=== PATIENT | male | born 1950 | race Caucasian/White ===

== ENCOUNTER 2017-09-28 12:34 | Inpatient (IN) | payer MEDICARE, OTHER ==
[~2017-09-28] VITALS: Ht 172.7 cm; Wt 106.2 kg
[~2017-09-28 12:34] MED LIST: LIDOcaine 2% (20 mg/ml) 5ml cardiac syringe ONE; albumin (human) 25% 100 ML IV solution IV ONE; aminocaproic acid 250 MG/1 ML inj. ONE; calcium chloride 100 MG/1 ML inj IV ONE; heparin 1,000 units/ml 10ml inj ONE; heparin 10,000 units/1 ML INJ ONE; magnesium sulf 1 GM/2 ML ONE; phenylephrine 10mg/ml inj. ONE; potassium Cl 2 mEq/ml inj IV ONE; sodium bicarbonate (8.4%) 1 mEq/ml syringe ONE
[2017-09-28 13:12] LABS: BASOPHILS % (AUTO) 0.4 % (0-1); EOSINOPHILS # (AUTO) 0.2 X10'3 (0-0.9); EOSINOPHILS % (AUTO) 2.1 % (0-6); HEMATOCRIT 45.3 % (42.0-52.0); HEMOGLOBIN 15.2 g/dl (14.0-17.9); LYMPHOCYTES # (AUTO) 2.2 X10'3 (1.1-4.8); LYMPHOCYTES % (AUTO) 24.3 % (21-51); MEAN CORPUSCULAR HEMOGLOBIN 29.3 PG (27.0-31.0); MEAN CORPUSCULAR HGB CONC 33.6 % (33.0-36.5); MEAN CORPUSCULAR VOLUME 87.2 FL (78-98); MEAN PLATELET VOLUME 7.6 FL (7.4-10.4); MONOCYTES # (AUTO) 0.6 X10'3 (0-0.9); MONOCYTES % (AUTO) 6.5 % (2-12); NEUTROPHILS % (AUTO) 66.7 % (42-75); PLATELET COUNT 251 X10'3 (140-440); RED CELL DISTRIBUTION WIDTH 14.6 % (11.5-14.5)
[2017-09-28 13:21] LABS: PARTIAL THROMBOPLASTIN TIME 28 SECONDS (22-32); PROTHROMBIN TIME 10.3 SECONDS (9.0-12.0)
[2017-09-28 13:27] LABS: ALANINE AMINOTRANSFERASE 46 U/L (12-78); ALBUMIN 3.7 G/DL (3.4-5.0); ALBUMIN/GLOBULIN RATIO 1.1 (1.1-1.5); ALKALINE PHOSPHATASE 93 IU/L (46-116); ANION GAP 8 (8-16); ASPARTATE AMINO TRANSFERASE 27 U/L (10-37); BILIRUBIN,TOTAL 0.5 MG/DL (0.1-1.0); BLOOD UREA NITROGEN 14 MG/DL (7-18); BUN/CREATININE RATIO 15.7 (5.4-32.0); CALCIUM 8.3 MG/DL (8.5-10.1); CHLORIDE 105 MMOL/L (99-107); CREATININE 0.89 MG/DL (0.60-1.10); GLUCOSE 91 MG/DL (70-104); POTASSIUM 3.8 MMOL/L (3.5-5.1); SODIUM 140 MMOL/L (135-145); TOTAL CARBON DIOXIDE 26.8 MMOL/L (24-32); TOTAL PROTEIN 7.2 G/DL (6.4-8.2); eGFR 85 ML/MIN
[2017-09-28] MEDS ORDERED: normal saline 1000ML IV soln IVB ONE (13:50)
[2017-09-28] MEDS ORDERED: etomidate 2mg/ml inj. ONE (14:00)
[2017-09-28] MEDS ORDERED: rocuronium 10mg/ml inj IV ONE (14:00)
[2017-09-28] MEDS ORDERED: sodium bicarbonate (8.4%) 1 mEq/ml syringe ONE (14:00)
[2017-09-28] MEDS ORDERED: epiNEPHrine 1 mg/ml 30ml MDV ONE (14:00)
[2017-09-28] MEDS ORDERED: atropine 0.1mg/ml 10ml syringe ONE (14:00)
[2017-09-28] MEDS ORDERED: sod chloride 0.9% 10ml flush syringe IV ONE ×3 (14:00)
[2017-09-28] MEDS ORDERED: epiNEPHrine 0.1mg/ml 10ml syringe ONE ×2 (14:00)
[2017-09-28] MEDS ORDERED: NORepinephrine bitartrate 8 MG in NS 250 ML BAG (32 mcg/ml) IV ONE (14:00)
[2017-09-28] MEDS ORDERED: LIDOcaine 2% (20 mg/ml) 5ml cardiac syringe ONE (14:00)
[2017-09-28] MEDS ORDERED: calcium chloride 100 MG/1 ML inj IV ONE (14:00)
[2017-09-28] MEDS ORDERED: heparin 10,000 units/1 ML INJ IV PRN (14:30)
[2017-09-28] MEDS ORDERED: heparin 10,000 units/1 ML INJ IV ONE ×2 (14:30→14:55)
[2017-09-28] MEDS ORDERED: potassium Cl 40MEQ/NS 500ml 500 ML IV PRN ×2 (14:45)
[2017-09-28] MEDS ORDERED: magnesium hydroxide 30ml (MOM) UD suspension PO PRN (14:45)
[2017-09-28] MEDS ORDERED: potassium Cl 20 mEq SR tablet PO PRN (14:45)
[2017-09-28] MEDS ORDERED: acetaminophen 325mg tablet PO PRN (14:45)
[2017-09-28] MEDS ORDERED: magnesium 1gm/100ml D5W IVPB 100 ML IV PRN (14:45)
[2017-09-28] MEDS ORDERED: magnesium 4gm in 100ml NS 100 ML IV PRN (14:45)
[2017-09-28] MEDS ORDERED: mag hydrox/Alum hydrox/simeth 30ml oral suspension PO PRN (14:45)
[2017-09-28] MEDS ORDERED: ondansetron/PF 4mg/2ml inj IV PRN (14:45)
[2017-09-28 15:44] VITALS: BP 138/71
[2017-09-28] MEDS: nitroGLYCERIN 0.4mg/hour patch TD SCH (16:18)
[2017-09-28 19:00] VITALS: BP 126/48
[2017-09-28 23:00] VITALS: BP 123/68
[2017-09-29] VITALS (24 sets, daily range): BP systolic 77–156; BP diastolic 46–92
[2017-09-29 01:05] LABS: ALANINE AMINOTRANSFERASE 40 U/L (12-78); ALKALINE PHOSPHATASE 92 IU/L (46-116); ANION GAP 7 (8-16); ASPARTATE AMINO TRANSFERASE 23 U/L (10-37); BILIRUBIN,TOTAL 0.3 MG/DL (0.1-1.0); BLOOD UREA NITROGEN 14 MG/DL (7-18); BUN/CREATININE RATIO 16.7 (5.4-32.0); CALCIUM 8.2 MG/DL (8.5-10.1); CHLORIDE 106 MMOL/L (99-107); CREATININE 0.84 MG/DL (0.60-1.10); GLUCOSE 126 MG/DL (70-104); POTASSIUM 3.4 MMOL/L (3.5-5.1); SODIUM 141 MMOL/L (135-145); TOTAL CARBON DIOXIDE 27.7 MMOL/L (24-32); TOTAL PROTEIN 6.1 G/DL (6.4-8.2); eGFR > 90 ML/MIN
[2017-09-29 01:09] LABS: CHOL/HDL RATIO 3.7 (0.00-4.99); CHOLESTEROL 139 MG/DL (0-200); HDL CHOLESTEROL 38 MG/DL (35-60); LDL CHOLESTEROL 83 MG/DL (50-100); MAGNESIUM 2.2 MG/DL (1.5-2.4); TRIGLYCERIDES 242 MG/DL (20-135)
[2017-09-29 02:26] LABS: BASOPHILS % (AUTO) 0.3 % (0-1); EOSINOPHILS # (AUTO) 0.3 X10'3 (0-0.9); EOSINOPHILS % (AUTO) 3.8 % (0-6); HEMOGLOBIN 13.9 g/dl (14.0-17.9); LYMPHOCYTES % (AUTO) 27.9 % (21-51); MEAN CORPUSCULAR HEMOGLOBIN 29.5 PG (27.0-31.0); MEAN CORPUSCULAR HGB CONC 33.9 % (33.0-36.5); MEAN CORPUSCULAR VOLUME 87.2 FL (78-98); MEAN PLATELET VOLUME 8.4 FL (7.4-10.4); MONOCYTES # (AUTO) 0.5 X10'3 (0-0.9); MONOCYTES % (AUTO) 7.3 % (2-12); NEUTROPHILS # (AUTO) 4.4 X10'3 (1.8-7.7); NEUTROPHILS % (AUTO) 60.7 % (42-75); PLATELET COUNT 233 X10'3 (140-440); RED CELL DISTRIBUTION WIDTH 14.4 % (11.5-14.5); WHITE BLOOD COUNT 7.3 X10'3 (4.5-11.0)
[2017-09-29] MEDS ORDERED: CAFFEINE CITRATE 60 MG/3 ML injection vial IV PRN (07:35)
[2017-09-29] MEDS ORDERED: regadenoson 0.4mg/5ml syringe IV ONE (07:35)
[2017-09-29] MEDS ORDERED: metoprolol tartrate 1mg/ml inj IV PRN (07:35)
[2017-09-29] MEDS ORDERED: nitroGLYCERIN 0.4mg SUBLingual tab SL PRN (07:35)
[2017-09-29] MEDS: nitroGLYCERIN 0.4mg/hour patch TD SCH ×3 (07:53→14:11)
[2017-09-29] MEDS: potassium Cl 20 mEq SR tablet PO PRN ×3 (07:54→20:23)
[2017-09-29] MEDS: K and/or MAG REPLACEMENT MC SCH (08:00)
[2017-09-29] MEDS: atorvastatin 20mg tablet PO SCH (10:05)
[2017-09-29] MEDS: metoprolol tartrate 25mg tablet PO SCH ×2 (10:05→20:22)
[2017-09-29] MEDS ORDERED: aspirin 325mg tablet PO SCH (10:05)
[2017-09-29] MEDS ORDERED: LIDOcaine 1% w/EPI 1:100,000 30ml vial (MDV) ONE (12:38)
[2017-09-29] MEDS ORDERED: fentaNYL/PF 50MCG/1 ML 2ML syringe ONE (12:38)
[2017-09-29] MEDS ORDERED: midazolam 2 mg/2 ml injection ONE (12:38)
[2017-09-29] MEDS ORDERED: iohexol 350MG/ML 100ml bottle IV ONE ×2 (12:38→16:59)
[2017-09-29] MEDS ORDERED: OXAZEpam 15mg capsule PO PRN (14:00)
[2017-09-29] MEDS ORDERED: morphine 2 MG/ML inj. syringe IV PRN (14:35)
[2017-09-29] MEDS: morphine 4 MG/ML inj SYRINge IV PRN (14:50)
[2017-09-29] MEDS ORDERED: heparin 10,000 units/1 ML INJ IV ONE (15:50)
[2017-09-29] MEDS ORDERED: morphine 10mg/0.5ml (conc. morphine) oral syringe PO PRN (15:55)
[2017-09-29] MEDS ORDERED: nitroGLYCERIN-Tridil 50MG/D5W 250 ML IV PRN (16:00)
[2017-09-29] MEDS ORDERED: dextrose 50%-water 50ml dispensing syringe IV PRN (16:25)
[2017-09-29] MEDS ORDERED: MESSAGE TO NURSING PO ONE ×4 (16:25)
[2017-09-29] MEDS: normal saline 1000ml 1,000 ML IV SCH (16:30)
[2017-09-29] MEDS ORDERED: ketorolac trometh. 30mg/ml inj. IV STA ×2 (16:30→16:35)
[2017-09-29] MEDS ORDERED: ketorolac tromethamine 15mg/ml inj. IV STA (16:33)
[2017-09-29 16:47] LABS: HEMATOCRIT 44.1 % (42.0-52.0); HEMOGLOBIN 14.9 g/dl (14.0-17.9); MEAN CORPUSCULAR HEMOGLOBIN 29.3 PG (27.0-31.0); MEAN CORPUSCULAR HGB CONC 33.9 % (33.0-36.5); MEAN CORPUSCULAR VOLUME 86.6 FL (78-98); MEAN PLATELET VOLUME 7.6 FL (7.4-10.4); PLATELET COUNT 260 X10'3 (140-440); RED BLOOD COUNT 5.09 X10'6 (4.70-6.10); RED CELL DISTRIBUTION WIDTH 14.5 % (11.5-14.5); WHITE BLOOD COUNT 8.9 X10'3 (4.5-11.0)
[2017-09-29] MEDS ORDERED: LORazepam 2 mg/ml vial IV ONE (16:55)
[2017-09-29 16:57] LABS: ALBUMIN 3.3 G/DL (3.4-5.0); ANION GAP 10 (8-16); BLOOD UREA NITROGEN 12 MG/DL (7-18); BUN/CREATININE RATIO 10.8 (5.4-32.0); CALCIUM 8.5 MG/DL (8.5-10.1); CHLORIDE 106 MMOL/L (99-107); CREATININE 1.11 MG/DL (0.60-1.10); GLUCOSE 119 MG/DL (70-104); HEMOGLOBIN A1C 5.9 % (4.5-6.2); POTASSIUM 3.8 MMOL/L (3.5-5.1); SODIUM 138 MMOL/L (135-145); eGFR 66 ML/MIN
[2017-09-29] MEDS: insulin Lispro (HumaLOG) vial - multi-dose SQ SCH (18:00)
[2017-09-30] VITALS (8 sets, daily range): BP systolic 127–163; BP diastolic 71–93
[2017-09-30 02:13] LABS: BASOPHILS % (AUTO) 0.3 % (0-1); EOSINOPHILS # (AUTO) 0.1 X10'3 (0-0.9); EOSINOPHILS % (AUTO) 1.1 % (0-6); HEMOGLOBIN 13.9 g/dl (14.0-17.9); LYMPHOCYTES # (AUTO) 1.8 X10'3 (1.1-4.8); LYMPHOCYTES % (AUTO) 18.2 % (21-51); MEAN CORPUSCULAR HEMOGLOBIN 29.7 PG (27.0-31.0); MEAN CORPUSCULAR VOLUME 87.3 FL (78-98); MEAN PLATELET VOLUME 7.8 FL (7.4-10.4); MONOCYTES # (AUTO) 0.6 X10'3 (0-0.9); MONOCYTES % (AUTO) 6.6 % (2-12); NEUTROPHILS # (AUTO) 7.1 X10'3 (1.8-7.7); NEUTROPHILS % (AUTO) 73.8 % (42-75); PLATELET COUNT 232 X10'3 (140-440); RED CELL DISTRIBUTION WIDTH 14.9 % (11.5-14.5); WHITE BLOOD COUNT 9.6 X10'3 (4.5-11.0)
[2017-09-30 02:27] LABS: ALANINE AMINOTRANSFERASE 45 U/L (12-78); ALBUMIN 3.1 G/DL (3.4-5.0); ALBUMIN/GLOBULIN RATIO 0.9 (1.1-1.5); ALKALINE PHOSPHATASE 91 IU/L (46-116); ANION GAP 6 (8-16); ASPARTATE AMINO TRANSFERASE 111 U/L (10-37); BILIRUBIN,TOTAL 0.5 MG/DL (0.1-1.0); BLOOD UREA NITROGEN 12 MG/DL (7-18); CALCIUM 7.9 MG/DL (8.5-10.1); CHLORIDE 105 MMOL/L (99-107); CREATININE 0.92 MG/DL (0.60-1.10); GLUCOSE 114 MG/DL (70-104); POTASSIUM 4.5 MMOL/L (3.5-5.1); SODIUM 138 MMOL/L (135-145); TOTAL CARBON DIOXIDE 26.9 MMOL/L (24-32); TOTAL PROTEIN 6.4 G/DL (6.4-8.2); eGFR 82 ML/MIN
[2017-09-30] MEDS: normal saline 1000ml 1,000 ML IV SCH ×3 (02:30→23:03)
[2017-09-30] MEDS: morphine 4 MG/ML inj SYRINge IV PRN ×3 (05:43→19:17)
[2017-09-30] MEDS: metoprolol tartrate 25mg tablet PO SCH ×2 (07:56→21:11)
[2017-09-30] MEDS: atorvastatin 20mg tablet PO SCH (07:56)
[2017-09-30] MEDS: nitroGLYCERIN 0.4mg/hour patch TD SCH (08:00)
[2017-09-30] MEDS: K and/or MAG REPLACEMENT MC SCH (08:00)
[2017-09-30] MEDS ORDERED: MESSAGE TO NURSING PO ONE (10:00)
[2017-09-30 12:41] LABS: ABG BASE EXCESS -1.2 mmol/L (-2.0-3.0); ABG HCO3 22.8 mmol/L (22.0-26.0); ABG OXYGEN SATURATION 95.9 % (95-98); ABG PCO2 (T) 35.4 mmHg (35.0-48.0); ABG PH (T) 7.425 (7.350-7.450); ABG PO2 (T) 75.1 mmHg (83-108); ALLEN'S TEST Positive; FCOHb 0.8 % (0.5-1.5); FO2Hb 95.1 % (94-100); PATIENT TEMPERATURE 36.6; TOTAL HEMOGLOBIN 15.1 G/dl (14.0-18.0)
[2017-09-30] MEDS ORDERED: ringers solution, lacted 1,000 ML IV ONE (14:52)
[2017-09-30] MEDS: heparin 10,000 units/1 ML INJ IV PRN ×2 (15:06→21:55)
[2017-09-30] MEDS ORDERED: nitroGLYCERIN-Tridil 50MG/D5W 250 ML IV PRN (16:00)
[2017-09-30] MEDS: insulin Lispro (HumaLOG) vial - multi-dose SQ SCH (18:00)
[2017-09-30] MEDS: aspirin 81mg tab.chew PO SCH (22:40)
[2017-10-01] VITALS (17 sets, daily range): BP systolic 98–166; BP diastolic 48–83
[2017-10-01] MEDS: insulin Lispro (HumaLOG) vial - multi-dose SQ SCH ×3 (01:47→18:00)
[2017-10-01 04:25] LABS: BASOPHILS # (AUTO) 0.1 X10'3 (0-0.2); BASOPHILS % (AUTO) 0.3 % (0-1); EOSINOPHILS % (AUTO) 0 % (0-6); HEMOGLOBIN 14.6 g/dl (14.0-17.9); LYMPHOCYTES # (AUTO) 1.5 X10'3 (1.1-4.8); LYMPHOCYTES % (AUTO) 9.8 % (21-51); MEAN CORPUSCULAR HEMOGLOBIN 29.6 PG (27.0-31.0); MEAN CORPUSCULAR HGB CONC 34.8 % (33.0-36.5); MEAN PLATELET VOLUME 7.6 FL (7.4-10.4); MONOCYTES # (AUTO) 1.1 X10'3 (0-0.9); MONOCYTES % (AUTO) 7.1 % (2-12); NEUTROPHILS # (AUTO) 12.8 X10'3 (1.8-7.7); NEUTROPHILS % (AUTO) 82.8 % (42-75); PLATELET COUNT 235 X10'3 (140-440); RED BLOOD COUNT 4.94 X10'6 (4.70-6.10); WHITE BLOOD COUNT 15.4 X10'3 (4.5-11.0)
[2017-10-01 04:37] LABS: PROTHROMBIN TIME 10.7 SECONDS (9.0-12.0)
[2017-10-01 04:39] LABS: ALANINE AMINOTRANSFERASE 81 U/L (12-78); ALBUMIN 3.2 G/DL (3.4-5.0); ALBUMIN/GLOBULIN RATIO 0.9 (1.1-1.5); ALKALINE PHOSPHATASE 88 IU/L (46-116); ANION GAP 8 (8-16); ASPARTATE AMINO TRANSFERASE 334 U/L (10-37); BILIRUBIN,TOTAL 0.8 MG/DL (0.1-1.0); BLOOD UREA NITROGEN 9 MG/DL (7-18); BUN/CREATININE RATIO 9.4 (5.4-32.0); CALCIUM 8.2 MG/DL (8.5-10.1); CHLORIDE 102 MMOL/L (99-107); CREATININE 0.96 MG/DL (0.60-1.10); GLUCOSE 142 MG/DL (70-104); MAGNESIUM 1.7 MG/DL (1.5-2.4); POTASSIUM 3.7 MMOL/L (3.5-5.1); SODIUM 134 MMOL/L (135-145); TOTAL PROTEIN 6.8 G/DL (6.4-8.2); eGFR 78 ML/MIN
[2017-10-01] MEDS ORDERED: cefazolin/dext.iso 2gm/50ml 50 ML IV ONE (05:00)
[2017-10-01] MEDS ORDERED: vancomycin/NS 1 GM ADD-VANTAGE 250 ML IV ONE (05:00)
[2017-10-01] MEDS: heparin 10,000 units/1 ML INJ IV PRN (05:50)
[2017-10-01] MEDS ORDERED: ringers solution, lacted 1,000 ML IV ONE (06:00)
[2017-10-01] MEDS ORDERED: LORazepam 2 mg/ml vial IV ONE (06:00)
[2017-10-01] MEDS ORDERED: famotidine 20mg tablet PO ONE (06:00)
[2017-10-01] MEDS: nitroGLYCERIN 0.4mg/hour patch TD SCH (06:47)
[2017-10-01] MEDS ORDERED: LORazepam 2 mg/ml vial ONE (07:10)
[2017-10-01] MEDS: metoprolol tartrate 25mg tablet PO SCH (08:00)
[2017-10-01] MEDS: K and/or MAG REPLACEMENT MC SCH (08:00)
[2017-10-01] MEDS: atorvastatin 20mg tablet PO SCH (08:00)
[2017-10-01] MEDS: aspirin 81mg tab.chew PO SCH (08:30)
[2017-10-01] MEDS ORDERED: heparin 1,000 units/ml 10ml inj ONE (09:00)
[2017-10-01] MEDS ORDERED: papaverine 30 mg/ml 2ml inj. ONE (09:00)
[2017-10-01] MEDS ORDERED: mupirocin 2% nasal ointment 1gm UD NS SCH (10:00)
[2017-10-01] MEDS: morphine 4 MG/ML inj SYRINge IV PRN ×3 (10:59→21:51)
[2017-10-01] MEDS: albuterol 2.5 MG/3 ML nebule NEB SCH ×2 (11:00→15:00)
[2017-10-01] MEDS ORDERED: NO HOME MEDS (11:16)
[2017-10-01] MEDS ORDERED: albumin (Human) 5% 250ml 250 ML IV ONE (11:20)
[2017-10-01] MEDS ORDERED: SUFENTANIL CITRATE 50 MCG/ML 2ml ampule IV ONE (11:39)
[2017-10-01] MEDS ORDERED: albumin (human) 25% 100 ML IV solution IV ONE (11:40)
[2017-10-01] MEDS ORDERED: nitroGLYCERIN in D5W 50mg/250ml (Tridil) infusion IV ONE (11:40)
[2017-10-01] MEDS ORDERED: aminocaproic acid 250 MG/1 ML inj. ONE (11:40)
[2017-10-01] MEDS ORDERED: isoflurane 100ml inhalation liquid IH ONE (11:40)
[2017-10-01] MEDS ORDERED: NORepinephrine bitartrate 8 MG in NS 250 ML BAG (32 mcg/ml) IV ONE (11:40)
[2017-10-01] MEDS ORDERED: protamine sulf. 10mg/ml inj. IV ONE (11:40)
[2017-10-01] MEDS ORDERED: INSULIN R 100 UNIT in NS 100ML (1 UNIT/1 ML) BAG IV ONE (11:40)
[2017-10-01] MEDS ORDERED: rocuronium 10mg/ml inj IV ONE (11:41)
[2017-10-01 12:46] LABS: ABG BASE EXCESS -2.9 mmol/L (-2.0-3.0); ABG HCO3 19.5 mmol/L (22.0-26.0); ABG OXYGEN SATURATION 99.3 % (95-98); ABG PCO2 27.8 mmHg (35.0-45.0); ABG PH 7.464 (7.350-7.450); ABG PO2 305.5 mmHg (60.0-100.0); CL (ABG) 104 mmol/L (99-107); FCOHb 0.8 % (0.5-1.5); FMetHb 0.4 % (0.3-1.12); FO2Hb 98.1 % (94-100); GLUCOSE (ABG) 110 mg/dl (70-105); IONIZED CA (ABG) 1.11 mmol/L (1.03-1.32); K (ABG) 3.7 mmol/L (3.3-5.1); NA (ABG) 134 mmol/L (135-145); TOTAL HEMOGLOBIN 13.5 G/dl (14.0-18.0)
[2017-10-01] MEDS ORDERED: papaverine 30 mg/ml 2ml inj. IA ONE (12:57)
[2017-10-01] MEDS ORDERED: heparin 10,000 units/1 ML INJ IJ ONE (12:58)
[2017-10-01] MEDS ORDERED: pancuronium br 1mg/ml inj IV ONE (13:20)
[2017-10-01 13:41] LABS: ACT @ 1.70 U 257 SEC (193-297); ACT @ 2.84 U 336 SEC (260-420); BASELINE ACT 163 SEC (101-148)
[2017-10-01 13:41] LABS: ABG BASE EXCESS -4.7 mmol/L (-2.0-3.0); ABG HCO3 19.1 mmol/L (22.0-26.0); ABG OXYGEN SATURATION 99.1 % (95-98); ABG PCO2 31.4 mmHg (35.0-45.0); ABG PH 7.401 (7.350-7.450); ABG PO2 277.2 mmHg (60.0-100.0); CL (ABG) 103 mmol/L (99-107); FCOHb 0.7 % (0.5-1.5); FMetHb 0.1 % (0.3-1.12); FO2Hb 98.3 % (94-100); GLUCOSE (ABG) 124 mg/dl (70-105); IONIZED CA (ABG) 1.09 mmol/L (1.03-1.32); K (ABG) 3.8 mmol/L (3.3-5.1); NA (ABG) 132 mmol/L (135-145); TOTAL HEMOGLOBIN 12.7 G/dl (14.0-18.0)
[2017-10-01 14:11] LABS: ABG BASE EXCESS -1.8 mmol/L (-2.0-3.0); ABG HCO3 22.1 mmol/L (22.0-26.0); ABG PCO2 34.5 mmHg (35.0-45.0); ABG PH 7.425 (7.350-7.450); ABG PO2 288.4 mmHg (60.0-100.0); CL (ABG) 101 mmol/L (99-107); FCOHb 0.9 % (0.5-1.5); FMetHb 0.3 % (0.3-1.12); FO2Hb 97.8 % (94-100); GLUCOSE (ABG) 111 mg/dl (70-105); IONIZED CA (ABG) 0.97 mmol/L (1.03-1.32); K (ABG) 4.7 mmol/L (3.3-5.1); NA (ABG) 130 mmol/L (135-145)
[2017-10-01 14:26] LABS: ABG BASE EXCESS -0.3 mmol/L (-2.0-3.0); ABG HCO3 24.7 mmol/L (22.0-26.0); ABG OXYGEN SATURATION 99.1 % (95-98); ABG PCO2 42.3 mmHg (35.0-45.0); ABG PH 7.385 (7.350-7.450); CL (ABG) 102 mmol/L (99-107); FCOHb 0.7 % (0.5-1.5); FMetHb 0.3 % (0.3-1.12); FO2Hb 98.1 % (94-100); GLUCOSE (ABG) 118 mg/dl (70-105); K (ABG) 4.5 mmol/L (3.3-5.1); NA (ABG) 132 mmol/L (135-145); TOTAL HEMOGLOBIN 10.2 G/dl (14.0-18.0)
[2017-10-01 15:15] LABS: ABG BASE EXCESS -1.3 mmol/L (-2.0-3.0); ABG HCO3 23.1 mmol/L (22.0-26.0); ABG OXYGEN SATURATION 95.4 % (95-98); ABG PCO2 37.5 mmHg (35.0-45.0); ABG PH 7.407 (7.350-7.450); ABG PO2 77.9 mmHg (60.0-100.0); CL (ABG) 104 mmol/L (99-107); FCOHb 0.8 % (0.5-1.5); FMetHb 0.3 % (0.3-1.12); FO2Hb 94.4 % (94-100); GLUCOSE (ABG) 130 mg/dl (70-105); IONIZED CA (ABG) 1.15 mmol/L (1.03-1.32); K (ABG) 4.1 mmol/L (3.3-5.1); NA (ABG) 133 mmol/L (135-145); TOTAL HEMOGLOBIN 10.7 G/dl (14.0-18.0)
[2017-10-01] MEDS ORDERED: niCARDipine/sod cl 20mg/200ml 200 ML IV PRN (15:34)
[2017-10-01] MEDS ORDERED: sodium chloride 0.45% 1,000 ML IV SCH (15:34)
[2017-10-01] MEDS ORDERED: DOPamine 400mg/D5W 250ml 250 ML IV PRN (15:34)
[2017-10-01] MEDS ORDERED: nitroGLYCERIN-Tridil 50MG/D5W 250 ML IV PRN (15:34)
[2017-10-01] MEDS ORDERED: metoclopramide 5 mg/ml inj IV PRN (15:35)
[2017-10-01] MEDS ORDERED: ondansetron/PF 4mg/2ml inj IV PRN (15:35)
[2017-10-01] MEDS ORDERED: potassium Cl 20mEq/100mL bag 100 ML IV PRN ×2 (15:35)
[2017-10-01] MEDS ORDERED: sodium phosphate inj. 15 MMOL in dextrose 5%-water 150 ML IV PRN (15:35)
[2017-10-01] MEDS ORDERED: magnesium 4gm in 100ml NS 100 ML IV PRN (15:35)
[2017-10-01] MEDS ORDERED: Neutra Phos packet PO PRN (15:35)
[2017-10-01] MEDS ORDERED: HYDROcodone/acetaminophen 10/325mg tab PO PRN (15:35)
[2017-10-01] MEDS ORDERED: insulin regular, human inj. 100 UNITS in normal saline 100ml IV soln 100 ML IV SCH ×2 (15:35)
[2017-10-01] MEDS ORDERED: acetaminophen 325mg tablet PO PRN (15:35)
[2017-10-01] MEDS ORDERED: normal saline 250ml IV soln 250 ML IV PRN (15:35)
[2017-10-01] MEDS ORDERED: sodium phosphate inj. 30 MMOL in dextrose 5%-water 250 ML IV PRN (15:35)
[2017-10-01] MEDS ORDERED: dextrose 50%-water 50ml dispensing syringe IV PRN (15:35)
[2017-10-01] MEDS ORDERED: magnesium hydroxide 30ml (MOM) UD suspension PO PRN (15:35)
[2017-10-01] MEDS ORDERED: magnesium 1gm/100ml D5W IVPB 100 ML IV PRN (15:35)
[2017-10-01] MEDS ORDERED: albumin (Human) 5% 250ml 250 ML IV PRN (15:35)
[2017-10-01] MEDS ORDERED: morphine 4 MG/ML inj SYRINge ONE (16:09)
[2017-10-01] MEDS ORDERED: propofol 1000mg/100ml bottle 100 ML IV ONE (16:10)
[2017-10-01 16:11] LABS: ABG BASE EXCESS -2.8 mmol/L (-2.0-3.0); ABG HCO3 22.3 mmol/L (22.0-26.0); ABG OXYGEN SATURATION 96.3 % (95-98); ABG PCO2 (T) 39.9 mmHg (35.0-48.0); ABG PH (T) 7.365 (7.350-7.450); FCOHb 0.8 % (0.5-1.5); FO2Hb 95.5 % (94-100); MINUTE VOLUME 10 L/min; PEEP 5 cm H2O; RESPIRATORY RATE 14 b/min; RESPIRATORY RATE (OBSERVED) 14 b/min; TIDAL VOLUME 650 mL; TOTAL HEMOGLOBIN 13.8 G/dl (14.0-18.0)
[2017-10-01 16:11] LABS: BASOPHILS # (AUTO) 0.1 X10'3 (0-0.2); BASOPHILS % (AUTO) 0.3 % (0-1); EOSINOPHILS # (AUTO) 0.2 X10'3 (0-0.9); EOSINOPHILS % (AUTO) 0.9 % (0-6); HEMATOCRIT 38.5 % (42.0-52.0); HEMOGLOBIN 13.2 g/dl (14.0-17.9); LYMPHOCYTES # (AUTO) 2.4 X10'3 (1.1-4.8); LYMPHOCYTES % (AUTO) 9.4 % (21-51); MEAN CORPUSCULAR HEMOGLOBIN 29.6 PG (27.0-31.0); MEAN CORPUSCULAR HGB CONC 34.4 % (33.0-36.5); MEAN CORPUSCULAR VOLUME 85.9 FL (78-98); MEAN PLATELET VOLUME 7.6 FL (7.4-10.4); MONOCYTES # (AUTO) 1.7 X10'3 (0-0.9); MONOCYTES % (AUTO) 6.5 % (2-12); NEUTROPHILS # (AUTO) 20.9 X10'3 (1.8-7.7); NEUTROPHILS % (AUTO) 82.9 % (42-75); PLATELET COUNT 200 X10'3 (140-440); RED BLOOD COUNT 4.48 X10'6 (4.70-6.10); RED CELL DISTRIBUTION WIDTH 14.7 % (11.5-14.5)
[2017-10-01 16:13] LABS: WHITE BLOOD COUNT 25.3 X10'3 (4.5-11.0)
[2017-10-01] MEDS: insulin regular, human inj. 100 UNITS in normal saline 100ml IV soln 100 ML IV SCH ×8 (16:20→21:58)
[2017-10-01 16:26] LABS: ALANINE AMINOTRANSFERASE 59 U/L (12-78); ALBUMIN 2.8 G/DL (3.4-5.0); ALKALINE PHOSPHATASE 63 IU/L (46-116); ANION GAP 9 (8-16); ASPARTATE AMINO TRANSFERASE 280 U/L (10-37); BILIRUBIN,TOTAL 1.4 MG/DL (0.1-1.0); BLOOD UREA NITROGEN 10 MG/DL (7-18); BUN/CREATININE RATIO 8.9 (5.4-32.0); CALCIUM 7.8 MG/DL (8.5-10.1); CHLORIDE 104 MMOL/L (99-107); CREATININE 1.12 MG/DL (0.60-1.10); GLUCOSE 174 MG/DL (70-104); MAGNESIUM 2.8 MG/DL (1.5-2.4); PHOSPHORUS 2.4 MG/DL (2.3-4.5); POTASSIUM 3.6 MMOL/L (3.5-5.1); SODIUM 137 MMOL/L (135-145); TOTAL CARBON DIOXIDE 24.3 MMOL/L (24-32); TOTAL PROTEIN 5.6 G/DL (6.4-8.2); eGFR 65 ML/MIN
[2017-10-01 16:30] LABS: INR 1.2 INR; PARTIAL THROMBOPLASTIN TIME 32 SECONDS (22-32)
[2017-10-01 16:54] LABS: TOTAL CELLS COUNTED 100
[2017-10-01 16:55] LABS: PLATELET ESTIMATE NORMAL
[2017-10-01] MEDS: ceFAZolin 1GM/D5W- ADD-VANTAGE 50 ML IV SCH ×2 (18:00→23:43)
[2017-10-01] MEDS ORDERED: morphine 10mg/ml inj. IV ONE (19:30)
[2017-10-01] MEDS: docusate sod 100mg capsule PO SCH (19:55)
[2017-10-01] MEDS: vancomycin/NS 1 GM ADD-VANTAGE 250 ML IV SCH (20:11)
[2017-10-01] MEDS: mupirocin 2% nasal ointment 1gm UD NS SCH (20:13)
[2017-10-01 23:11] LABS: BASOPHILS % (AUTO) 0 % (0-1); EOSINOPHILS # (AUTO) 0.1 X10'3 (0-0.9); EOSINOPHILS % (AUTO) 0.8 % (0-6); HEMATOCRIT 35.2 % (42.0-52.0); LYMPHOCYTES # (AUTO) 0.4 X10'3 (1.1-4.8); LYMPHOCYTES % (AUTO) 3.1 % (21-51); MEAN CORPUSCULAR HEMOGLOBIN 29.5 PG (27.0-31.0); MEAN CORPUSCULAR HGB CONC 34.1 % (33.0-36.5); MEAN CORPUSCULAR VOLUME 86.3 FL (78-98); MEAN PLATELET VOLUME 7.8 FL (7.4-10.4); MONOCYTES # (AUTO) 0.3 X10'3 (0-0.9); MONOCYTES % (AUTO) 2.3 % (2-12); NEUTROPHILS # (AUTO) 12.5 X10'3 (1.8-7.7); NEUTROPHILS % (AUTO) 93.8 % (42-75); PLATELET COUNT 156 X10'3 (140-440); RED BLOOD COUNT 4.08 X10'6 (4.70-6.10); RED CELL DISTRIBUTION WIDTH 14.4 % (11.5-14.5); WHITE BLOOD COUNT 13.4 X10'3 (4.5-11.0)
[2017-10-01 23:26] LABS: ALANINE AMINOTRANSFERASE 53 U/L (12-78); ALBUMIN 1.8 G/DL (3.4-5.0); ALBUMIN/GLOBULIN RATIO 0.5 (1.1-1.5); ALKALINE PHOSPHATASE 57 IU/L (46-116); ANION GAP 7 (8-16); ASPARTATE AMINO TRANSFERASE 197 U/L (10-37); BILIRUBIN,TOTAL 1.1 MG/DL (0.1-1.0); BLOOD UREA NITROGEN 11 MG/DL (7-18); BUN/CREATININE RATIO 11.3 (5.4-32.0); CALCIUM 7.9 MG/DL (8.5-10.1); CHLORIDE 107 MMOL/L (99-107); CREATININE 0.97 MG/DL (0.60-1.10); GLUCOSE 165 MG/DL (70-104); SODIUM 140 MMOL/L (135-145); TOTAL CARBON DIOXIDE 26.1 MMOL/L (24-32); TOTAL PROTEIN 5.7 G/DL (6.4-8.2); eGFR 77 ML/MIN
[2017-10-01 23:32] LABS: MAGNESIUM 2.3 MG/DL (1.5-2.4)
[2017-10-01] MEDS: potassium Cl 20mEq/100mL bag 100 ML IV PRN (23:44)
[2017-10-01] MEDS ORDERED: SODIUM PHOSPHATE IN D5W 250 ML IV ONE (23:45)
[2017-10-02] VITALS (24 sets, daily range): BP systolic 92–131; BP diastolic 57–77
[2017-10-02] MEDS: potassium Cl 20mEq/100mL bag 100 ML IV PRN (01:29)
[2017-10-02] MEDS: propofol 1000mg/100ml bottle 100 ML IV PRN ×2 (01:30→02:44)
[2017-10-02 03:21] LABS: ABG HCO3 23.2 mmol/L (22.0-26.0); ABG OXYGEN SATURATION 96.4 % (95-98); ABG PCO2 (T) 34.2 mmHg (35.0-48.0); ABG PH (T) 7.451 (7.350-7.450); FCOHb 0.2 % (0.5-1.5); FMetHb 0.3 % (0.3-1.12); FO2Hb 95.9 % (94-100); MINUTE VOLUME 9 L/min; PATIENT TEMPERATURE 37.5; PEEP 5 cm H2O; RESPIRATORY RATE 12 b/min; RESPIRATORY RATE (OBSERVED) 12 b/min; TIDAL VOLUME 600 mL; TOTAL HEMOGLOBIN 12.9 G/dl (14.0-18.0)
[2017-10-02] MEDS: morphine 4 MG/ML inj SYRINge IV PRN ×3 (04:14→18:34)
[2017-10-02 05:11] LABS: ACTIVATED CLOTTING TIME 125 SEC (101-148)
[2017-10-02 05:26] LABS: BASOPHILS % (AUTO) 0 % (0-1); EOSINOPHILS # (AUTO) 0.1 X10'3 (0-0.9); EOSINOPHILS % (AUTO) 0.9 % (0-6); HEMATOCRIT 34.9 % (42.0-52.0); HEMOGLOBIN 12.1 g/dl (14.0-17.9); LYMPHOCYTES # (AUTO) 0.5 X10'3 (1.1-4.8); LYMPHOCYTES % (AUTO) 3.3 % (21-51); MEAN CORPUSCULAR HEMOGLOBIN 29.7 PG (27.0-31.0); MEAN CORPUSCULAR HGB CONC 34.6 % (33.0-36.5); MEAN CORPUSCULAR VOLUME 85.9 FL (78-98); MEAN PLATELET VOLUME 7.9 FL (7.4-10.4); MONOCYTES # (AUTO) 0.7 X10'3 (0-0.9); MONOCYTES % (AUTO) 4.5 % (2-12); NEUTROPHILS # (AUTO) 14.7 X10'3 (1.8-7.7); NEUTROPHILS % (AUTO) 91.3 % (42-75); PLATELET COUNT 154 X10'3 (140-440); RED BLOOD COUNT 4.06 X10'6 (4.70-6.10); RED CELL DISTRIBUTION WIDTH 14.3 % (11.5-14.5); WHITE BLOOD COUNT 16.1 X10'3 (4.5-11.0)
[2017-10-02 05:31] LABS: INR 1.1 INR; PARTIAL THROMBOPLASTIN TIME 30 SECONDS (22-32); PROTHROMBIN TIME 11.3 SECONDS (9.0-12.0)
[2017-10-02 05:59] LABS: ALANINE AMINOTRANSFERASE 49 U/L (12-78); ALBUMIN 2.7 G/DL (3.4-5.0); ALBUMIN/GLOBULIN RATIO 0.9 (1.1-1.5); ALKALINE PHOSPHATASE 54 IU/L (46-116); ANION GAP 10 (8-16); ASPARTATE AMINO TRANSFERASE 137 U/L (10-37); BILIRUBIN,TOTAL 0.8 MG/DL (0.1-1.0); BLOOD UREA NITROGEN 13 MG/DL (7-18); BUN/CREATININE RATIO 12.4 (5.4-32.0); CHLORIDE 107 MMOL/L (99-107); CREATININE 1.05 MG/DL (0.60-1.10); GLUCOSE 140 MG/DL (70-104); MAGNESIUM 2.1 MG/DL (1.5-2.4); POTASSIUM 4.2 MMOL/L (3.5-5.1); SODIUM 141 MMOL/L (135-145); TOTAL CARBON DIOXIDE 23.9 MMOL/L (24-32); TOTAL PROTEIN 5.8 G/DL (6.4-8.2); TRIGLYCERIDES 49 MG/DL (20-135); eGFR 70 ML/MIN
[2017-10-02] MEDS: ceFAZolin 1GM/D5W- ADD-VANTAGE 50 ML IV SCH ×2 (07:26→17:59)
[2017-10-02] MEDS: insulin regular, human inj. 100 UNITS in normal saline 100ml IV soln 100 ML IV SCH ×2 (07:33)
[2017-10-02] MEDS: albuterol 2.5 MG/3 ML nebule NEB SCH ×3 (07:48→11:25)
[2017-10-02] MEDS ORDERED: aspirin 325mg tablet, delayed-release (Ecotrin) PO SCH (08:00)
[2017-10-02] MEDS ORDERED: atorvastatin 10mg tablet PO SCH (08:00)
[2017-10-02] MEDS: vancomycin/NS 1 GM ADD-VANTAGE 250 ML IV SCH ×2 (08:45→19:52)
[2017-10-02] MEDS: metoprolol tartrate 12.5mg (1/2 tablet) PO SCH ×2 (08:58→19:51)
[2017-10-02] MEDS: pantoprazole 40mg Tablet.DR PO SCH (08:58)
[2017-10-02] MEDS: mupirocin 2% nasal ointment 1gm UD NS SCH ×2 (08:59→19:52)
[2017-10-02] MEDS: insulin Lispro (HumaLOG) vial - multi-dose SQ SCH ×3 (09:00→18:50)
[2017-10-02] MEDS: docusate sod 100mg capsule PO SCH ×2 (10:47→19:51)
[2017-10-02] MEDS: HYDROcodone/acetaminophen 10/325mg tab PO PRN (10:47)
[2017-10-03] VITALS (16 sets, daily range): BP systolic 90–117; BP diastolic 55–77
[2017-10-03] MEDS: ceFAZolin 1GM/D5W- ADD-VANTAGE 50 ML IV SCH (00:43)
[2017-10-03 02:59] LABS: BASOPHILS % (AUTO) 0 % (0-1); EOSINOPHILS % (AUTO) 0 % (0-6); HEMATOCRIT 32.2 % (42.0-52.0); HEMOGLOBIN 10.8 g/dl (14.0-17.9); LYMPHOCYTES # (AUTO) 0.8 X10'3 (1.1-4.8); LYMPHOCYTES % (AUTO) 4.6 % (21-51); MEAN CORPUSCULAR HEMOGLOBIN 29.3 PG (27.0-31.0); MEAN CORPUSCULAR HGB CONC 33.6 % (33.0-36.5); MEAN CORPUSCULAR VOLUME 87.2 FL (78-98); MEAN PLATELET VOLUME 8.7 FL (7.4-10.4); MONOCYTES # (AUTO) 0.6 X10'3 (0-0.9); MONOCYTES % (AUTO) 3.1 % (2-12); NEUTROPHILS # (AUTO) 16.4 X10'3 (1.8-7.7); NEUTROPHILS % (AUTO) 92.3 % (42-75); PLATELET COUNT 160 X10'3 (140-440); RED CELL DISTRIBUTION WIDTH 14.7 % (11.5-14.5); WHITE BLOOD COUNT 17.8 X10'3 (4.5-11.0)
[2017-10-03 03:20] LABS: ALANINE AMINOTRANSFERASE 38 U/L (12-78); ALBUMIN 2.4 G/DL (3.4-5.0); ALBUMIN/GLOBULIN RATIO 0.8 (1.1-1.5); ALKALINE PHOSPHATASE 57 IU/L (46-116); ANION GAP 6 (8-16); ASPARTATE AMINO TRANSFERASE 59 U/L (10-37); BILIRUBIN,TOTAL 0.5 MG/DL (0.1-1.0); BLOOD UREA NITROGEN 20 MG/DL (7-18); BUN/CREATININE RATIO 20.6 (5.4-32.0); CHLORIDE 105 MMOL/L (99-107); CREATININE 0.97 MG/DL (0.60-1.10); GLUCOSE 168 MG/DL (70-104); MAGNESIUM 2.3 MG/DL (1.5-2.4); PHOSPHORUS 3.1 MG/DL (2.3-4.5); POTASSIUM 4.6 MMOL/L (3.5-5.1); SODIUM 140 MMOL/L (135-145); TOTAL CARBON DIOXIDE 29.1 MMOL/L (24-32); TOTAL PROTEIN 5.5 G/DL (6.4-8.2); eGFR 77 ML/MIN
[2017-10-03] MEDS: morphine 4 MG/ML inj SYRINge IV PRN (03:56)
[2017-10-03] MEDS ORDERED: magnesium 4gm in 100ml NS 100 ML IV PRN (07:20)
[2017-10-03] MEDS ORDERED: potassium Cl 40MEQ/NS 500ml 500 ML IV PRN ×2 (07:20)
[2017-10-03] MEDS ORDERED: potassium Cl 20 mEq SR tablet PO PRN ×2 (07:20)
[2017-10-03] MEDS ORDERED: magnesium Cl slow-release 64mg tablet PO PRN (07:20)
[2017-10-03] MEDS ORDERED: magnesium 1gm/100ml D5W IVPB 100 ML IV PRN (07:20)
[2017-10-03] MEDS ORDERED: magnesium Cl slow-release 64mg tablet PO SCH (08:00)
[2017-10-03] MEDS ORDERED: atorvastatin 20mg tablet PO SCH (08:00)
[2017-10-03] MEDS ORDERED: aspirin 81mg tab.chew PO SCH (08:00)
[2017-10-03] MEDS ORDERED: potassium Cl 20 mEq SR tablet PO SCH (08:00)
[2017-10-03] MEDS ORDERED: K and/or MAG REPLACEMENT MC SCH (08:00)
[2017-10-03] MEDS: docusate sod 100mg capsule PO SCH (08:42)
[2017-10-03] MEDS: metoprolol tartrate 12.5mg (1/2 tablet) PO SCH (08:42)
[2017-10-03] MEDS: insulin Lispro (HumaLOG) vial - multi-dose SQ SCH ×2 (09:00→13:00)
[2017-10-03] MEDS: pantoprazole 40mg Tablet.DR PO SCH (10:41)
[2017-10-03] MEDS ORDERED: furosemide 40mg/4ml inj IV ONE (14:30)
[2017-10-03] MEDS: HYDROcodone/acetaminophen 10/325mg tab PO PRN (15:40)
== END 2017-10-03 19:33 | disposition expired | DRG 234 ==
LOC: ER 12:35 → ED HOLD 14:43 → PCU 3S 16:44 → PACU 10-01 11:40 → ICU 2S 10-01 15:43 → PCU 3S 10-03 15:15
PROVIDERS: ADMIT Family Medicine; ATTEND Thoracic Surgery (Cardiothoracic Vascular Surgery)
PROC: 4A023N7 Measurement of Cardiac Sampling and Pressure, Left Heart, Percutaneous Approach (ICD-10-PCS; 2017-09-29)
PROC: B2111ZZ Fluoroscopy of Multiple Coronary Arteries using Low Osmolar Contrast (ICD-10-PCS; 2017-09-29)
PROC: B2151ZZ Fluoroscopy of Left Heart using Low Osmolar Contrast (ICD-10-PCS; 2017-09-29)
PROC: B32T1ZZ Computerized Tomography (CT Scan) of Left Pulmonary Artery using Low Osmolar Contrast (ICD-10-PCS; 2017-09-29)
PROC: B3201ZZ Computerized Tomography (CT Scan) of Thoracic Aorta using Low Osmolar Contrast (ICD-10-PCS; 2017-09-29)
PROC: B32S1ZZ Computerized Tomography (CT Scan) of Right Pulmonary Artery using Low Osmolar Contrast (ICD-10-PCS; 2017-09-29)
PROC: B3121ZZ Fluoroscopy of Left Subclavian Artery using Low Osmolar Contrast (ICD-10-PCS; 2017-09-29)
PROC: 02100Z9 Bypass Coronary Artery, One Artery from Left Internal Mammary, Open Approach (ICD-10-PCS; 2017-10-01)
PROC: 06BP4ZZ Excision of Right Saphenous Vein, Percutaneous Endoscopic Approach (ICD-10-PCS; 2017-10-01)
PROC: B246ZZ4 Ultrasonography of Right and Left Heart, Transesophageal (ICD-10-PCS; 2017-10-01)
PROC: 05HM33Z Insertion of Infusion Device into Right Internal Jugular Vein, Percutaneous Approach (ICD-10-PCS; 2017-10-01)
PROC: 5A1221Z Performance of Cardiac Output, Continuous (ICD-10-PCS; 2017-10-01)
PROC: B543ZZA Ultrasonography of Right Jugular Veins, Guidance (ICD-10-PCS; 2017-10-01)
PROC: 021009W Bypass Coronary Artery, One Artery from Aorta with Autologous Venous Tissue, Open Approach (ICD-10-PCS; principal; 2017-10-01 11:40)
PROC: 06HM33Z Insertion of Infusion Device into Right Femoral Vein, Percutaneous Approach (ICD-10-PCS; 2017-10-03)
PROC: 5A12012 Performance of Cardiac Output, Single, Manual (ICD-10-PCS; 2017-10-03)
PROC: 0BH17EZ Insertion of Endotracheal Airway into Trachea, Via Natural or Artificial Opening (ICD-10-PCS; 2017-10-03)
PROC: 02QA0ZZ Repair Heart, Open Approach (ICD-10-PCS; 2017-10-03)
DX: I21.4 Non-ST elevation (NSTEMI) myocardial infarction (principal); I25.110 Atherosclerotic heart disease of native coronary artery with unstable angina pectoris; E66.9 Obesity, unspecified; I46.9 Cardiac arrest, cause unspecified; M25.512 Pain in left shoulder; M25.511 Pain in right shoulder; R00.1 Bradycardia, unspecified; G89.29 Other chronic pain; Z79.899 Other long term (current) drug therapy; Z87.891 Personal history of nicotine dependence; Z82.5 Family history of asthma and other chronic lower respiratory diseases; Z83.3 Family history of diabetes mellitus; Z82.49 Family history of ischemic heart disease and other diseases of the circulatory system; Z68.35 Body mass index [BMI] 35.0-35.9, adult
CPT/HCPCS: 0232T; 92950; 93306; 93312; 93325; 93458; 96365; 99285; 36415; 36600; 71045; 71275; 74174; 80048; 80053; 80061; 82330; 82435; 82803; 82947; 82948; 83036; 83735; 84100; 84132; 84295; 84478; 84484; 85018; 85025; 85027; 85347; 85384; 85610; 85730; 86885; 86900; 86901; 86920; 87070; 92616; 93005; 93308; 93880; 93971; 94002; 94003; 94010; 94640; 94668; 94760; 97116; 97161; 97530; 99152; 99153; A4620; A6212; A6213; A6255; A6257; A6258; A6402; A6449; A7000; A7015; A7048; C1751; C1769; J0171; J0461; J0690; J1644; J1815; J1885; J1940; J2001; J2060; J2150; J2250; J2270; J2370; J2440; J2704; J2720; J3010; J3370; J3475; J3480; J3490; J7030; J7120; P9045; P9047; Q9967